=== PATIENT | female | born 1955 | race Caucasian/White ===

== ENCOUNTER 2018-07-24 20:29 | Emergency (ER) | payer BC ==
[2018-07-24 20:39] VITALS: RESP 18
[2018-07-24] MEDS ORDERED: KETOROLAC 30 MG/ML 1 ML VIAL IVP STA (21:14)
[2018-07-24] MEDS ORDERED: MORPHINE SULFATE 4 MG/ML SYRINGE IV STA (21:14)
[2018-07-24] MEDS ORDERED: diphenhydrAMINE 50 MG/ML 1 ML VIAL IVP STA (21:14)
[2018-07-24] MEDS ORDERED: METOCLOPRAMIDE 5 MG/ML 2 ML VIAL IVP STA (21:14)
[2018-07-24] MEDS ORDERED: SODIUM CHLORIDE 0.9% 1,000 ML IV STA (21:14)
--- NOTE | 2018-07-24 21:23 | ED ---
General Adult HPI - General Chief complaint: Headache Stated complaint: headache Time Seen by Provider: 07/24/18 20:58 Source: patient, RN notes reviewed, old records reviewed Mode of arrival: ambulatory Limitations: no limitations - History of Present Illness Initial comments: 63-year-old female presenting for evaluation of headache. Patient has had 3 days of right-sided headache. She does have history of headache in the past, she gets a severe headache approximately once a year. She states that this is similar in character to her previous headaches however it has not been relieved with jvtr-pzh-[id number] medications and Tylenol 3 and tramadol. Headache has persisted with a constant nature over the past 3 days. It was gradual in onset. Patient states she was driving when her headache began. No exertional component. Denies fever or chills. Denies vomiting. She has had some mild nausea. No vision changes. No photophobia. No focal numbness or weakness. - Related Data Previous Rx's Medication Instructions Recorded Ibuprofen [Motrin] 600 mg PO Q8HR PRN #24 tab 07/24/18 Allergies Allergy/AdvReac Type Severity Reaction Status Date / Time No Known Allergies Allergy Verified 02/11/16 10:04 Review of Systems ROS Statement: Those systems with pertinent positive or pertinent negative responses have been documented in the HPI. ROS Other: All systems not noted in ROS Statement are negative. Past Medical History Past Medical History: No Reported History History of Any Multi-Drug Resistant Organisms: None Reported Past Surgical History: Tonsillectomy Additional Past Surgical History / Comment(s): LEFT EAR, LAPAROTOMY, Past Anesthesia/Blood Transfusion Reactions: No Reported Reaction Past Psychological History: No Psychological Hx Reported Smoking Status: Current every day smoker - Past Family History Mother Family Medical History: No Reported History General Exam Limitations: no limitations General appearance: alert, in no apparent distress Head exam: Present: atraumatic, normocephalic Eye exam: Present: normal appearance, PERRL, EOMI ENT exam: Present: normal exam Neck exam: Present: normal inspection. Absent: tenderness Respiratory exam: Present: normal lung sounds bilaterally. Absent: respiratory distress, wheezes Cardiovascular Exam: Present: regular rate, normal rhythm GI/Abdominal exam: Present: soft. Absent: distended, tenderness Extremities exam: Present: normal inspection, normal capillary refill. Absent: pedal edema Neurological exam: Present: alert, oriented X3, CN II-XII intact. Absent: motor sensory deficit Psychiatric exam: Present: normal affect, normal mood Skin exam: Present: warm, dry, intact. Absent: cyanosis, diaphoretic Course Vital Signs 07/24/18 20:36 Temperature 98.2 F Pulse Rate 105 H Respiratory 18 Rate Blood Pressure 193/109 O2 Sat by Pulse 97 Oximetry Medical Decision Making - Medical Decision Making 63-year-old female presenting with headache. Headache is similar in character to her previous headache although more severe. Patient is well-appearing, nonfocal neurologic exam. Laboratory studies obtained, normal CBC, CMP does reveal mild hyponatremia 131 no other significant abnormalities. After treatment in the emergency Department patient is feeling much better. She will be discharged home with outpatient follow-up. She will return with worsening or changing symptoms. She is given neurology follow-up as these headaches have been ongoing for the past several years. - Lab Data Result diagrams: 07/24/18 22:05 07/24/18 22:05 Lab Results 07/24/18 07/24/18 Range/Units 22:05 22:05 WBC 9.7 (3.8-10.6) k/uL RBC 3.54 L (3.80-5.40) m/uL Hgb 11.2 L (11.4-16.0) gm/dL Hct 32.6 L (34.0-46.0) % MCV 92.0 (80.0-100.0) fL MCH 31.5 (25.0-35.0) pg MCHC 34.2 (31.0-37.0) g/dL RDW 11.9 (11.5-15.5) % Plt Count 293 (150-450) k/uL Neutrophils % 72 % Lymphocytes % 22 % Monocytes % 4 % Eosinophils % 1 % Basophils % 0 % Neutrophils # 6.9 (1.3-7.7) k/uL Lymphocytes # 2.1 (1.0-4.8) k/uL Monocytes # 0.4 (0-1.0) k/uL Eosinophils # 0.1 (0-0.7) k/uL Basophils # 0.0 (0-0.2) k/uL Sodium 131 L (137-145) mmol/L Potassium 3.7 (3.5-5.1) mmol/L Chloride 101 (98-107) mmol/L Carbon Dioxide 23 (22-30) mmol/L Anion Gap 7 mmol/L BUN 10 (7-17) mg/dL Creatinine 0.60 (0.52-1.04) mg/dL Est GFR (CKD-EPI)AfAm >90 (>60 ml/min/1.73 sqM) Est GFR (CKD-EPI)NonAf >90 (>60 ml/min/1.73 sqM) Glucose 92 (74-99) mg/dL Calcium 8.5 (8.4-10.2) mg/dL Total Bilirubin 0.3 (0.2-1.3) mg/dL AST 24 (14-36) U/L ALT 35 (9-52) U/L Alkaline Phosphatase 68 (38-126) U/L Total Protein 5.9 L (6.3-8.2) g/dL Albumin 3.4 L (3.5-5.0) g/dL Disposition Clinical Impression: Headache Disposition: HOME SELF-CARE Condition: Good Instructions: Acute Headache (ED) Prescriptions: Ibuprofen [Motrin] 600 mg PO Q8HR PRN #24 tab PRN Reason: Pain Is patient prescribed a controlled substance at d/c from ED?: No Referrals: Patricia Euceda MD [Primary Care Provider] - 1-2 days Tatiana Tafoya MD [STAFF PHYSICIAN] - 1-2 days Time of Disposition: 22:47
--- NOTE | 2018-07-24 22:01 | CT ---
EXAMINATION TYPE: CT brain wo con DATE OF EXAM: 07/24/2018 HISTORY: AMS, headache CT DLP: 1017.80 mGycm. Automated Exposure Control for Dose Reduction was Utilized. TECHNIQUE: CT scan of the head is performed without contrast. COMPARISON: None. FINDINGS: There is no acute intracranial hemorrhage or midline shift identified. The ventricular sy stem and cortical sulci are within normal limits. The dhillon-white differentiation is maintained. The g lobes are intact and the visualized sinuses are clear. IMPRESSION: No acute intracranial hemorrhage or midline shift.
[2018-07-24 22:20] LABS: Basophils % (A) 0 %; Eosinophils # (A) 0.1 k/uL (0-0.7); Eosinophils % (A) 1 %; HCT 32.6 % (34.0-46.0); HGB 11.2 gm/dL (11.4-16.0); Lymphocytes # (A) 2.1 k/uL (1.0-4.8); Lymphocytes % (A) 22 %; MCH 31.5 pg (25.0-35.0); MCHC 34.2 g/dL (31.0-37.0); Mean Platelet Volume 6.5; Monocytes # (A) 0.4 k/uL (0-1.0); Monocytes % (A) 4 %; Neutrophils # (A) 6.9 k/uL (1.3-7.7); Neutrophils % (A) 72 %; Platelet Count 293 k/uL (150-450); RBC 3.54 m/uL (3.80-5.40); RDW 11.9 % (11.5-15.5); WBC 9.7 k/uL (3.8-10.6)
[2018-07-24 22:37] LABS: ALT 35 U/L (9-52); AST 24 U/L (14-36); Albumin 3.4 g/dL (3.5-5.0); Alkaline Phosphatase 68 U/L (38-126); Anion Gap 7 mmol/L; Blood Urea Nitrogen 10 mg/dL (7-17); Calcium 8.5 mg/dL (8.4-10.2); Carbon Dioxide 23 mmol/L (22-30); Chloride 101 mmol/L (98-107); Glucose 92 mg/dL (74-99); Potassium 3.7 mmol/L (3.5-5.1); Sodium 131 mmol/L (137-145); Total Bilirubin 0.3 mg/dL (0.2-1.3); Total Protein 5.9 g/dL (6.3-8.2)
[2018-07-24 22:56] VITALS: BP 169/92; PULSE 78; TEMP 97.7
== END 2018-07-24 22:55 | disposition home or self-care (01) ==
LOC: EC 20:29
DX: R51 Headache (principal); R11.0 Nausea; E87.1 Hypo-osmolality and hyponatremia; F17.200 Nicotine dependence, unspecified, uncomplicated; Z98.890 Other specified postprocedural states
CPT/HCPCS: 36415; 80053; 85025; 70450; 99285; 96374; 96375 ×3; 96361; J2270; J1200; J2765; J1885

== ENCOUNTER → 2018-09-16 | Outpatient (CLI) | payer BC ==
--- NOTE | 2018-09-19 13:43 | MM ---
Reason for exam: screening (asymptomatic). History: Patient is postmenopausal. Physical Findings: A clinical breast exam by your physician is recommended on an annual basis and results should be correlated with mammographic findings. MG Screening Mammo w CAD Bilateral CC and MLO view(s) were taken. The breast tissue is heterogeneously dense. This may lower the sensitivity of mammography. No suspicious abnormality. Right biopsy marker noted. ASSESSMENT: Negative, BI-RAD 1 RECOMMENDATION: Routine screening mammogram of both breasts in 1 year.
== END | disposition home or self-care (01) ==
LOC: RADMAMWWP 14:02
PROVIDERS: ATTEND Internal Medicine
DX: Z12.31 Encounter for screening mammogram for malignant neoplasm of breast (principal)
CPT/HCPCS: 77067

== ENCOUNTER 2018-10-13 08:53 | Day surgery (SDC) | payer BC ==
[2018-10-11 09:10] VITALS: BMI 25.0
[~2018-10-13 08:53] MED LIST: LIDOCAINE 1% 20 ML VIAL (10MG/ML) FOR IV START INTRADERMA PRN; MIDAZOLAM 2 MG/2 ML VIAL IV PRN
[2018-10-13] MEDS: LACTATED RINGERS 1,000 ML IV SCH ×2 (09:10→09:45)
[2018-10-13 09:11] VITALS: TEMP 96.9
[2018-10-13] MEDS ORDERED: PROPOFOL 10 MG/ML 20 ML VIAL IV ONE (09:48)
--- NOTE | 2018-10-13 10:19 | P.PCN ---
Date of Procedure: 10/13/18 Procedure(s) Performed: Procedure: Total colonoscopy. Preoperative diagnosis: Screening for neoplasia, patient has family history of colon cancer in her brother. Postoperative diagnosis: Sigmoid diverticulosis with no evidence of acute diverticulitis, strictures, polyps or cancer. Preparation: HalfLytely prep. Sedation: Was provided by anesthesia. Brief clinical history: The patient is 63-year-old female who is scheduled for this evaluation because of family history of colon cancer in her brother. The patient has no abdominal complaints, bleeding or anemia. This would be her first colonoscopy. Procedure: With the patient on her left lateral decubitus position and after informed consent and adequate sedation, the perianal area was inspected and it did not show any fissures or fistulas. There were no masses felt on digital rectal examination. The Olympus CFQ 160L video colonoscope was then inserted in the rectum in the usual fashion and advanced to the cecum. There were several diverticular orifices seen scattered in the sigmoid but I saw no evidence of acute diverticulitis or strictures. No polyps or tumors were seen. I retroflexed the endoscope in the rectum before the endoscope was withdrawn. The patient tolerated the procedure well. Plan: The patient was reassured. Discussed dietary measures. With her family history, I am recommending repeat exam in 5 years. She will follow-up with you as planned.
[2018-10-13 10:46] VITALS: BP 150/78; PULSE 68; RESP 18
== END 2018-10-13 10:47 | disposition home or self-care (01) ==
LOC: ORWHC2ENDO 08:53
DX: Z12.11 Encounter for screening for malignant neoplasm of colon (principal); K57.30 Diverticulosis of large intestine without perforation or abscess without bleeding; Z80.0 Family history of malignant neoplasm of digestive organs; I10 Essential (primary) hypertension; F17.210 Nicotine dependence, cigarettes, uncomplicated
CPT/HCPCS: J2704; G0105; 45378

== ENCOUNTER → 2018-11-17 | Outpatient (CLI) | payer BC ==
--- NOTE | 2018-11-17 10:44 | MR ---
EXAMINATION TYPE: MR brain wo con DATE OF EXAM: 11/17/2018 COMPARISON: CT brain 07/24/2018 HISTORY: Headache / Occipital neuralgia TECHNIQUE: T1-weighted sagittal, T2, FLAIR, and diffusion axial, and T2 coronal coronal views of the brain are submitted. FINDINGS: Exam limited by motion artifact. There is no evidence of acute ischemia. There is no mass effect. Craniocervical junction maintained. Sella turcica has a normal appearance. No cerebellopontine angle mass. Changes of chronic sinusitis are noted. Mild generalized degenerative change with a greater central and frontal lobe component. There is mild diffuse and numerous focal areas of abnormal signal the white matter which are nonspeci fic. Area of abnormal signal in the right basal ganglia may represent an intraparenchymal cyst, promi nent Virchow-Sidney space or remote lacunar infarction. Next There are prominent CSF spaces in the posterior fossa may represent a prominent cisterna magna or sma ll arachnoid cyst. IMPRESSION: 1. [id number] degenerative change with a greater central component. Normal pressure hydrocephal us in the differential diagnosis. 2. Kabj-at-qdyaepxf nonspecific white matter changes. Differential diagnosis includes remote microvas cular ischemia. Other etiologies including demyelinating process in the differential diagnosis. Corre late clinically.
--- NOTE | 2018-11-17 10:49 | MR ---
EXAMINATION TYPE: MR angio head wo con DATE OF EXAM: 11/17/2018 COMPARISON: NONE HISTORY: Headache / Occipital neuralgia TECHNIQUE: Utilizing 3-D [id number] intracranial MRA of the skull [place] was performed. FINDINGS: The vertebrobasilar and carotid systems are patent. There is 2 mm nodular prominence involving the b asilar tip suspicious for small aneurysm. No evidence of vascular malformation. Left vertebral artery is dominant. IMPRESSION: 1. Findings are suspicious for a 2 mm aneurysm involving the basilar tip. Correlate clinically.
== END | disposition home or self-care (01) ==
LOC: RADMRIMAIN 09:55
PROVIDERS: ATTEND Psychiatry & Neurology Neurology
DX: R51 Headache (principal); M54.81 Occipital neuralgia
CPT/HCPCS: 70544; 70551

== ENCOUNTER → 2024-04-20 | Outpatient (CLI) | payer MEDICARE, BC ==
--- NOTE | 2024-04-20 13:08 | XR ---
EXAMINATION TYPE: XR chest 2V DATE OF EXAM: 04/20/2024 COMPARISON: None INDICATION: COPD smoking history TECHNIQUE: Frontal and lateral views of the chest are obtained. FINDINGS: The heart size is normal. The pulmonary vasculature is normal. The lungs are clear. IMPRESSION: 1. No acute pulmonary process. 2. Consider criteria for low-dose CT chest screening
== END | disposition home or self-care (01) ==
LOC: RADXRYALE 12:13
PROVIDERS: ATTEND Internal Medicine
DX: J44.9 Chronic obstructive pulmonary disease, unspecified (principal)
CPT/HCPCS: 71046

== ENCOUNTER → 2024-05-02 | Outpatient (CLI) | payer MEDICARE, BC ==
--- NOTE | 2024-05-03 20:09 | CTL ---
EXAMINATION TYPE: CT Low Dose Lung DATE OF EXAM ORDERED: 05/02/2024 History: Lung cancer screening CT DLP: 68.[address] CTDI: 2.0 mGy Automated exposure control for dose reduction was used. Comparison: None TECHNIQUE: Low dose computed tomography scan was performed through the chest at 1 mm thick sections a nd reconstructed images in multiple planes at 1 mm and [address] DIAGNOSTIC QUALITY: Satisfactory FINDINGS: There is a 4.2 mm nodule in the right lower lobe and a 2 -3 mm nodule in the right middle lobe. The lungs are clear and there is no abnormal consolidation or interstitial density. There is no mediastinal, hilar or axillary adenopathy. There is no pleural effusion, pleural thickening or pneumothorax. No focal osseous lesions are seen. Limited scans the upper abdomen reveals no gross adenopathy. IMPRESSION: 1. BI-RADS Category 2 benign.. Continue routine screening at yearly intervals. 2. No acute cardiopulmonary disease.
== END | disposition home or self-care (01) ==
LOC: RADCTMAIN 13:53
PROVIDERS: ATTEND Internal Medicine
DX: Z12.2 Encounter for screening for malignant neoplasm of respiratory organs (principal); J44.9 Chronic obstructive pulmonary disease, unspecified; F17.210 Nicotine dependence, cigarettes, uncomplicated
CPT/HCPCS: 71271